=== PATIENT | female | born 1965 | race American Indian/Alaskan Native ===

== ENCOUNTER 2017-08-15 19:04 | Emergency (ER) | payer SELFPAY ==
[2017-08-15 19:34] VITALS: BP 109/73
--- NOTE | 2017-08-15 20:18 | XRay Report ---
FINAL REPORT PROCEDURE: XR SPINE LUMBOSACRAL 2-3V TECHNIQUE: Lumbar spine radiographs, including AP, lateral, and lumbosacral spot views. CPT 63995 HISTORY: Lower Back Pain COMPARISON: No prior studies are available for comparison. FINDINGS: Alignment: There is mild degree spondylolisthesis at L4-5 measuring 8 millimeters resulting in mild degree spinal canal stenosis. Vertebral body heights/Disk spaces: Mild narrowing of the intervertebral disc spaces noted at L5-S1.. Fracture(s): None. Facets: Bilateral facet arthropathy is noted from L3-4 to L5-S1. Bone mineralization: Normal. IMPRESSION: Spondylolisthesis at L4-5 with spinal canal stenosis Degenerative disc disease at L5-S1.
--- NOTE | 2017-08-15 20:21 | XRay Report ---
FINAL REPORT PROCEDURE: XR SHOULDER 2+V RT TECHNIQUE: Right shoulder radiographs including AP views in internal and external rotation and abduction. CPT 16392 HISTORY: Right shoulder pain COMPARISON: No prior studies are available for comparison. FINDINGS: Fracture (s) and/or Dislocation(s): None . Joint space(s): Normal. Soft tissues: Normal . Bone mineralization: Unremarkable. Foreign bodies: None . IMPRESSION: No acute abnormality
--- NOTE | 2017-08-15 20:22 | XRay Report ---
FINAL REPORT PROCEDURE: XR RIBS UNI W PA CHEST 3+V RT TECHNIQUE: RIGHT rib radiographs, 3 views of the ribs, including PA chest. HISTORY: Right rib pain COMPARISON: No prior studies are available for comparison. FINDINGS: Heart: Normal. Mediastinum/Vessels: Normal. Lungs: Normal. Pleural space: Normal. Pneumothorax: None. Bony thorax/ribs: No significant abnormality. IMPRESSION: Normal Examination.
== END 2017-08-15 20:30 | disposition left against medical advice (07) ==
LOC: ED 19:04
DX: R07.81 Pleurodynia (principal); M54.5 Low back pain; M25.511 Pain in right shoulder; Z53.21 Procedure and treatment not carried out due to patient leaving prior to being seen by health care provider
CPT/HCPCS: 72100

== ENCOUNTER 2017-08-29 06:45 | Emergency (ER) | payer MEDICARE, MEDICAID ==
[2017-08-29 07:24] VITALS: BP 124/87
== END 2017-08-29 07:41 | disposition left against medical advice (07) ==
LOC: ED 06:45
DX: M54.9 Dorsalgia, unspecified (principal); W10.9XXA Fall (on) (from) unspecified stairs and steps, initial encounter; Y93.89 Activity, other specified; Y99.8 Other external cause status; Y92.89 Other specified places as the place of occurrence of the external cause; Z53.21 Procedure and treatment not carried out due to patient leaving prior to being seen by health care provider

== ENCOUNTER 2017-12-03 08:15 | Outpatient (CLI) | payer MEDICARE, MEDICAID ==
--- NOTE | 2017-12-03 14:01 | Mammography Report ---
BILATERAL DIGITAL SCREENING MAMMOGRAM with CAD : 12/03/17 08:15:00 CLINICAL: Routine screening. COMPARISON:None available. FINDINGS: The breasts are heterogeneously dense, which may obscure small masses.Bilateral benign calcifications, some which are vascular. No mass, architectural distortion or suspicious calcifications. IMPRESSION: No mammographic evidence of malignancy. BI-RADS CATEGORY: 2 -- Benign RECOMMENDATION: Routine mammographic screening in one year. COMMENT: Patient follow-up letters are generated by our [employer] application.
== END 2017-12-03 08:16 | disposition home or self-care (01) ==
LOC: MAMMO 08:15
PROVIDERS: ATTEND Nurse Practitioner Family
DX: Z12.31 Encounter for screening mammogram for malignant neoplasm of breast (principal)
CPT/HCPCS: 77067

== ENCOUNTER 2018-10-02 07:46 | Emergency (ER) | payer MEDICARE ==
[2018-10-02] MEDS ORDERED: ZOFRAN ODT PO ONE (08:33)
[2018-10-02] MEDS ORDERED: NORCO 10/325 PO ONE (08:33)
--- NOTE | 2018-10-02 08:50 | Emergency Department Report ---
ED General Adult HPI - General Chief complaint: Fall Stated complaint: FALL/NECK PAIN Time Seen by Provider: 10/02/18 08:12 Source: patient, EMS Mode of arrival: Stretcher Limitations: No Limitations - History of Present Illness Initial comments: The patient presents to the emergency department with a chief complaint of right shoulder and neck pain. Patient states she was walking down the steps in front of her symptom is the way the bottom of the steps and slipped on the tile floor and fell onto her shoulder which in turn stretched her neck. Patient denies loss of consciousness or hitting her head. -: Sudden Location: neck, upper extremity Radiation: non-radiation Severity scale (0 -10): 8 Quality: aching Consistency: constant Improves with: rest Worsens with: movement Associated Symptoms: denies other symptoms Treatments Prior to Arrival: none - Related Data Home Medications Medication Instructions Recorded Confirmed Last Taken Depakote 1,500 mg PO HS 08/15/17 08/15/17 Unknown Previous Rx's Medication Instructions Recorded Last Taken Type Acetaminophen/Codeine [Tylenol 1 tab PO Q6H PRN #15 tab 10/02/18 Unknown Rx /Codeine # 3 tab] Ondansetron [Zofran Odt] 4 mg PO Q4HR PRN #20 tab.rapdis 10/02/18 Unknown Rx Allergies Allergy/AdvReac Type Severity Reaction Status Date / Time NSAIDS (Non-Steroidal AdvReac Unknown Verified 08/29/17 07:24 Anti-Inflamma ED Review of Systems ROS: Stated complaint: FALL/NECK PAIN Other details as noted in HPI Comment: All other systems reviewed and negative Constitutional: denies: chills, fever Eyes: denies: eye pain, eye discharge, vision change ENT: denies: ear pain, throat pain Respiratory: denies: cough, shortness of breath, wheezing Cardiovascular: denies: chest pain, palpitations Endocrine: no symptoms reported Gastrointestinal: denies: abdominal pain, nausea, diarrhea Genitourinary: denies: urgency, dysuria, discharge Musculoskeletal: denies: back pain, joint swelling, arthralgia Skin: denies: rash, lesions Neurological: denies: headache, weakness, paresthesias Psychiatric: denies: anxiety, depression Hematological/Lymphatic: denies: easy bleeding, easy bruising ED Past Medical Hx - Past Medical History Hx Psychiatric Treatment: Yes (Bipolar) - Surgical History Additional Surgical History: Bariactric Surgery 2015 - Social History Smoking Status: Current Every Day Smoker - Medications Home Medications: Home Medications Medication Instructions Recorded Confirmed Last Taken Type Depakote 1,500 mg PO HS 08/15/17 08/15/17 Unknown History Acetaminophen/Codeine [Tylenol 1 tab PO Q6H PRN #15 tab 10/02/18 Unknown Rx /Codeine # 3 tab] Ondansetron [Zofran Odt] 4 mg PO Q4HR PRN #20 tab.rapdis 10/02/18 Unknown Rx ED Physical Exam - General Limitations: No Limitations General appearance: alert, in no apparent distress - Head Head exam: Present: atraumatic, normocephalic - Eye Eye exam: Present: normal appearance, PERRL, EOMI - ENT ENT exam: Present: mucous membranes moist - Neck Neck exam: Present: other (paracervical ttp no midline ttp) - Respiratory Respiratory exam: Present: normal lung sounds bilaterally. Absent: respiratory distress - Cardiovascular Cardiovascular Exam: Present: regular rate, normal rhythm. Absent: systolic murmur, diastolic murmur, rubs, gallop - GI/Abdominal GI/Abdominal exam: Present: soft, normal bowel sounds. Absent: distended, tenderness - Extremities Exam Extremities exam: Present: other (right shoulder is tender to palpation at the acromioclavicular junction with limited range of motion secondary to pain) - Back Exam Back exam: Present: normal inspection - Neurological Exam Neurological exam: Present: alert, oriented X3, CN II-XII intact. Absent: motor sensory deficit - Psychiatric Psychiatric exam: Present: normal affect, normal mood - Skin Skin exam: Present: warm, dry, intact, normal color. Absent: rash ED Course Vital Signs 10/02/18 10/02/18 10/02/18 07:58 08:14 08:16 Temperature 98.6 F Pulse Rate 92 H 66 Respiratory 16 18 16 Rate Blood Pressure 160/70 131/95 [Left] O2 Sat by Pulse 98 97 97 Oximetry ED Medical Decision Making - Radiology Data Radiology results: report reviewed - Medical Decision Making Discussed results with patient Critical care attestation.: If time is entered above; I have spent that time in minutes in the direct care of this critically ill patient, excluding procedure time. ED Disposition Clinical Impression: Right shoulder strain, Cervical muscle strain, Cervical arthritis Disposition: DC-01 TO HOME OR SELFCARE Is pt being admited?: No Does the pt Need Aspirin: No Condition: Stable Instructions: Muscle Strain (ED), Cervical Spine Strain (ED), Shoulder Sprain (ED) Additional Instructions: return if worse Referrals: PRIMARY CARE,MD [Primary Care Provider] - 3-5 Days [facility] [Provider Group] - 3-5 Days [facility] [Provider Group] - 3-5 Days Time of Disposition: 09:36
--- NOTE | 2018-10-02 09:23 | XRay Report ---
CERVICAL SPINE, 4 VIEWS INDICATION: Neck pain after fall on stairs. COMPARISON: None. IMPRESSION: Normal alignment. Mild degenerative disc disease is identified at C3-4, C4-5 and C5-6. The remaining levels and facet joints are unremarkable. No acute osseous or soft tissue abnormality. Signer Name: Remi Stroud Jr, MD Signed: 10/02/2018 9:19 AM Workstation Name: [id number]
--- NOTE | 2018-10-02 09:25 | XRay Report ---
RIGHT SHOULDER, 3 VIEWS INDICATION: Right shoulder pain after fall. COMPARISON: 08/15/2017 IMPRESSION: No acute osseous or soft tissue abnormality. No significant DJD. No significant pope e since the previous exam. Signer Name: Remi Stroud Jr, MD Signed: 10/02/2018 9:21 AM Workstation Name: [id number]
[2018-10-02 09:49] VITALS: BP 140/99
== END 2018-10-02 09:51 | disposition home or self-care (01) ==
LOC: ED 07:46
DX: S46.911A Strain of unspecified muscle, fascia and tendon at shoulder and upper arm level, right arm, initial encounter (principal); S16.1XXA Strain of muscle, fascia and tendon at neck level, initial encounter; F31.9 Bipolar disorder, unspecified; F17.200 Nicotine dependence, unspecified, uncomplicated; Z79.899 Other long term (current) drug therapy; Z98.84 Bariatric surgery status; Z88.7 Allergy status to serum and vaccine; W01.198A Fall on same level from slipping, tripping and stumbling with subsequent striking against other object, initial encounter; Y93.89 Activity, other specified; Y92.89 Other specified places as the place of occurrence of the external cause; Y99.8 Other external cause status
CPT/HCPCS: 72040; 99283; Q0162

== ENCOUNTER 2018-11-16 13:05 | Emergency (ER) | payer MEDICARE ==
[2018-11-16 13:24] VITALS: BP 130/97
--- NOTE | 2018-11-16 13:33 | Event Note ---
ED Screening Note Date of service: 11/16/18 Time: 13:29 ED Screening Note: Seen here last mary night and injured left . Came and had xray and was told she had sprained knee and brace placed. She called [facility] and was told that he does not take well care. She finally found [facility] on 11/25/2018 at 10 pm at [facility]. She was given tylenol 3 and another pill with crutches Still with brace to knee and using crutches. Pain 08/21 This initial assessment/diagnostic orders/clinical plan/treatment(s) is/are subject to change based on patients health status, clinical progression and re- assessment by fellow clinical providers in the ED. Further treatment and workup at subsequent clinical providers discretion. Patient/guardian urged not to elope from the ED as their condition may be serious if not clinically assessed and managed. Initial orders include: TBS by FT provider
--- NOTE | 2018-11-16 14:56 | Emergency Department Report ---
ED Lower Extremity HPI - General Chief Complaint: Extremity Injury, Lower Stated Complaint: LFT KNEE PAIN Time Seen by Provider: 11/16/18 13:24 Source: patient Mode of arrival: Ambulatory Limitations: No Limitations - History of Present Illness Initial Comments: Recent dx knee sprain not to see ortho until next week and needs more pain meds Complaint: knee injury -: Sudden, week(s) (1) Injury: Knee: Left Type of Injury: unknown Place: home Improves With: rest Worsens With: movement - Related Data Home Medications Medication Instructions Recorded Confirmed Last Taken Depakote 1,500 mg PO HS 08/15/17 08/15/17 Unknown Previous Rx's Medication Instructions Recorded Last Taken Type Ondansetron [Zofran Odt] 4 mg PO Q4HR PRN #20 tab.rapdis 10/02/18 Unknown Rx Acetaminophen/Codeine [Tylenol 1 tab PO Q6H PRN #12 tab 11/16/18 Unknown Rx /Codeine # 3 tab] Allergies Allergy/AdvReac Type Severity Reaction Status Date / Time NSAIDS (Non-Steroidal AdvReac Unknown Verified 08/29/17 07:24 Anti-Inflamma ED Review of Systems ROS: Stated complaint: LFT KNEE PAIN Other details as noted in HPI Comment: All other systems reviewed and negative ED Past Medical Hx - Past Medical History Hx Psychiatric Treatment: Yes (Bipolar) - Surgical History Past Surgical History?: No Additional Surgical History: Bariactric Surgery 2014 - Social History Smoking Status: Current Every Day Smoker Substance Use Type: Alcohol - Medications Home Medications: Home Medications Medication Instructions Recorded Confirmed Last Taken Type Depakote 1,500 mg PO HS 08/15/17 08/15/17 Unknown History Ondansetron [Zofran Odt] 4 mg PO Q4HR PRN #20 tab.rapdis 10/02/18 Unknown Rx Acetaminophen/Codeine [Tylenol 1 tab PO Q6H PRN #12 tab 11/16/18 Unknown Rx /Codeine # 3 tab] ED Physical Exam - General Limitations: No Limitations General appearance: alert, in no apparent distress - Head Head exam: Present: atraumatic, normocephalic - Eye Eye exam: Present: normal appearance, EOMI - Neck Neck exam: Present: normal inspection, full ROM - Extremities Exam Extremities exam: Present: other (immobilizer to L knee, mild swelling to knee, no calf pain or edema, normal pulses distally ) - Neurological Exam Neurological exam: Present: alert, oriented X3 - Psychiatric Psychiatric exam: Present: normal affect, normal mood - Skin Skin exam: Present: warm, dry, normal color ED Course Vital Signs 11/16/18 13:20 Temperature 98.1 F Pulse Rate 88 Respiratory 18 Rate Blood Pressure 130/97 [Left] O2 Sat by Pulse 99 Oximetry ED Lower Extremity MDM - Medical Decision Making will give few pain pills until f/u - Differential Diagnosis sprain, med refill Critical care attestation.: If time is entered above; I have spent that time in minutes in the direct care of this critically ill patient, excluding procedure time. ED Disposition Clinical Impression: Left knee sprain Qualifiers: Encounter type: subsequent encounter Involved ligament of knee: unspecified ligament Qualified Code(s): S83.92XD - Sprain of unspecified site of left knee, subsequent encounter Disposition: DC-01 TO HOME OR SELFCARE Is pt being admited?: No Condition: Good Instructions: Knee Sprain (ED) Additional Instructions: Keep your orthopedic follow up. Prescriptions: Acetaminophen/Codeine [Tylenol /Codeine # 3 tab] 1 tab PO Q6H PRN #12 tab PRN Reason: pain Time of Disposition: 14:56
== END 2018-11-16 15:41 | disposition home or self-care (01) ==
LOC: ED 13:05
DX: S83.92XD Sprain of unspecified site of left knee, subsequent encounter (principal); F31.9 Bipolar disorder, unspecified; F17.200 Nicotine dependence, unspecified, uncomplicated; X58.XXXD Exposure to other specified factors, subsequent encounter
CPT/HCPCS: 99281

== ENCOUNTER 2018-12-06 08:02 | Emergency (ER) | payer MEDICARE ==
[2018-12-06 08:09] VITALS: BP 115/76
[2018-12-06] MEDS ORDERED: DECADRON IM ONE (08:21)
--- NOTE | 2018-12-06 08:21 | Emergency Department Report ---
ED Extremity Problem HPI - General Chief complaint: Extremity Injury, Lower Stated complaint: LFT KNEE SPRAINED/RT LEG PAIN Time Seen by Provider: 12/06/18 08:14 Source: patient Mode of arrival: Ambulatory Limitations: No Limitations - History of Present Illness Initial comments: Patient is a 53-year-old [place] female in no snake and past mental history states that approximately 3 weeks ago she tripped and sprained her left knee. Left knee is improving however over the last week she is developed some right lower back pain is radiating into the right buttock and down through the right lower extremity. The patient denies any bowel or bladder dysfunction. She denies any new direct trauma. Patient is having difficulty walking secondary to pain. Pain is 8 out of 10 in severity is just uncomfortable feeling. Patient states she cannot sit up straight because of the pain. Associated Symptoms: denies: chest pain, shortness of breath, fever, myalgias, arthralgias - Related Data Home Medications Medication Instructions Recorded Confirmed Last Taken Depakote 1,500 mg PO HS 08/15/17 08/15/17 Unknown Previous Rx's Medication Instructions Recorded Last Taken Type Ondansetron [Zofran Odt] 4 mg PO Q4HR PRN #20 tab.rapdis 10/02/18 Unknown Rx Acetaminophen/Codeine [Tylenol 1 tab PO Q6H PRN #12 tab 11/16/18 Unknown Rx /Codeine # 3 tab] methOCARBAMOL [Robaxin TAB] 500 mg PO Q6H PRN #14 tablet 12/06/18 Unknown Rx traMADol [Ultram] 50 mg PO Q6HR PRN #12 tablet 12/06/18 Unknown Rx Allergies Allergy/AdvReac Type Severity Reaction Status Date / Time NSAIDS (Non-Steroidal AdvReac Unknown Verified 08/29/17 07:24 Anti-Inflamma ED Review of Systems ROS: Stated complaint: LFT KNEE SPRAINED/RT LEG PAIN Other details as noted in HPI Comment: All other systems reviewed and negative ED Past Medical Hx - Past Medical History Previous Medical History?: Yes Hx Psychiatric Treatment: Yes (Bipolar) - Surgical History Past Surgical History?: Yes Additional Surgical History: Bariactric Surgery 2014 - Social History Smoking Status: Current Every Day Smoker Substance Use Type: None - Medications Home Medications: Home Medications Medication Instructions Recorded Confirmed Last Taken Type Depakote 1,500 mg PO HS 08/15/17 08/15/17 Unknown History Ondansetron [Zofran Odt] 4 mg PO Q4HR PRN #20 tab.rapdis 10/02/18 Unknown Rx Acetaminophen/Codeine [Tylenol 1 tab PO Q6H PRN #12 tab 11/16/18 Unknown Rx /Codeine # 3 tab] methOCARBAMOL [Robaxin TAB] 500 mg PO Q6H PRN #14 tablet 12/06/18 Unknown Rx traMADol [Ultram] 50 mg PO Q6HR PRN #12 tablet 12/06/18 Unknown Rx ED Physical Exam - General Limitations: No Limitations General appearance: alert, in no apparent distress - Head Head exam: Present: atraumatic, normocephalic - Eye Eye exam: Present: normal appearance, PERRL, EOMI - ENT ENT exam: Present: mucous membranes moist - Neck Neck exam: Present: normal inspection - Respiratory Respiratory exam: Present: normal lung sounds bilaterally. Absent: respiratory distress, wheezes, rales, rhonchi - Cardiovascular Cardiovascular Exam: Present: regular rate, normal rhythm, normal heart sounds - GI/Abdominal GI/Abdominal exam: Present: soft, normal bowel sounds. Absent: distended - Extremities Exam Extremities exam: Present: normal inspection - Back Exam Back exam: Present: normal inspection, paraspinal tenderness (right lumbar. pain with palpation of buttock) - Neurological Exam Neurological exam: Present: alert, oriented X3 - Psychiatric Psychiatric exam: Present: normal affect, normal mood - Skin Skin exam: Present: warm, dry, intact, normal color. Absent: rash ED Course Vital Signs 12/06/18 08:06 Temperature 98.6 F Pulse Rate 92 H Respiratory 18 Rate Blood Pressure 115/76 O2 Sat by Pulse 98 Oximetry ED Medical Decision Making - Medical Decision Making Patient's pain is consistent with acute lumbar radiculopathy. Patient like was favoring her left knee has developed issue on her right lower back. Patient be referred to orthopedic surgery the patient be started on steroid therapy and pain management. Critical care attestation.: If time is entered above; I have spent that time in minutes in the direct care of this critically ill patient, excluding procedure time. ED Disposition Clinical Impression: Lumbar radiculopathy, acute Disposition: DC-01 TO HOME OR SELFCARE Is pt being admited?: No Does the pt Need Aspirin: No Condition: Stable Instructions: Lumbar Radiculopathy (ED) Referrals: SKYE NUÑEZ MD [Staff Physician] - 3-5 Days Time of Disposition: 08:21
== END 2018-12-06 09:14 | disposition home or self-care (01) ==
LOC: ED 08:02
DX: M54.16 Radiculopathy, lumbar region (principal); M25.562 Pain in left knee; F17.200 Nicotine dependence, unspecified, uncomplicated; F31.9 Bipolar disorder, unspecified; Z88.7 Allergy status to serum and vaccine; Z79.899 Other long term (current) drug therapy
CPT/HCPCS: 96372; 99282; J1100

== ENCOUNTER 2019-04-01 08:03 | Outpatient (CLI) | payer MEDICARE ==
--- NOTE | 2019-04-01 15:17 | Mammography Report ---
DIGITAL SCREENING MAMMOGRAM WITH CAD, 04/01/2019 INDICATION: Routine screening mammography. TECHNIQUE: Digital bilateral 2D mammography was obtained in the craniocaudal and mediolateral obliq ue projections. This examination was interpreted with the benefit of Computer-Aided Detection analysi s. COMPARISON: 12/03/2017 FINDINGS: Breast Density: The breasts are heterogeneously dense, which may obscure small masses. Left asymmetries on both views require additional imaging. No architectural distortion or suspicious calcifications. There is no evidence of dominant mass, suspicious calcifications or architectural dis tortion in the right breast. IMPRESSION: Left asymmetries requiring additional imaging. Recommend recall for left lateral, repeat MLO and spot compression MLO and CC views and left breast ultrasound if needed. Follow up recommendation: Special View: Spot Category 0: Incomplete. Needs additional imaging evaluation and/or prior mammograms for comparison. A "normal" or negative report should not discourage follow up or biopsy of a clinically significant f inding. A written summary of these findings will be mailed to the patient. The patient will be entered into a mammography reporting system which will generate a reminder letter for the patient's next appointmen t at the appropriate interval. The [employer] recommends yearly mammograms starting at age 40 and continuing as l charlie as a woman is in good health. Breast MRI is recommended for women with an approximate 20-25% or greater lifetime risk of breast cancer, including women with a strong family history of breast or ova keshawn cancer or who have been treated for Hodgkin's disease. Signer Name: Harrison Matthews MD Signed: 04/01/2019 3:12 PM Workstation Name: [id number]
== END 2019-04-01 08:04 | disposition home or self-care (01) ==
LOC: MAMMO 08:03
PROVIDERS: ATTEND Internal Medicine
DX: Z12.31 Encounter for screening mammogram for malignant neoplasm of breast (principal)
CPT/HCPCS: 77067

== ENCOUNTER 2019-04-15 21:13 | Emergency (ER) | payer MEDICARE ==
--- NOTE | 2019-04-15 21:49 | Emergency Department Report ---
Blank Doc - Documentation Documentation: 54-year-old female that presents with chest pain, SOB and cough. This initial assessment/diagnostic orders/clinical plan/treatment(s) is/are subject to change based on patient's health status, clinical progression and re- assessment by fellow clinical providers in the ED. Further treatment and workup at subsequent clinical providers discretion. Patient/guardians urged not to elope from the ED as their condition may be serious if not clinically assessed and managed. Initial orders include: 1- Patient sent to [facility] for further evaluation and treatment 2- cardiac work-up
--- NOTE | 2019-04-15 22:39 | XRay Report ---
CHEST 2 VIEWS INDICATION / CLINICAL INFORMATION: Chest Pain. COMPARISON: None available. FINDINGS: SUPPORT DEVICES: None. HEART / MEDIASTINUM: No significant abnormality. LUNGS / PLEURA: There is mild airspace opacity in the left lung base which could represent atelectasi s or pneumonia. The remainder the lungs are clear. .No pneumothorax. ADDITIONAL FINDINGS: No significant additional findings. IMPRESSION: 1. There is mild airspace opacity in the left base which could represent atelectasis or pneumonia. Signer Name: Luis A Pereira MD Signed: 04/15/2019 10:35 PM Workstation Name: [id number]
[2019-04-15 23:08] LABS: Hematocrit 34.6 % (30.3-42.9); Hemoglobin 11.8 gm/dl (10.1-14.3); Mean Corpuscular HGB Conc 34 % (30-34); Mean Corpuscular Volume 99 fl (79-97); Platelet Count 442 K/mm3 (140-440); Red Blood Count 3.49 M/mm3 (3.65-5.03); Red Cell Distribution Width 12.7 % (13.2-15.2)
[2019-04-15 23:28] LABS: INR 0.89 (0.87-1.13)
[2019-04-15 23:29] LABS: Partial Thromboplastin Time 32.8 Sec. (24.2-36.6)
[2019-04-15 23:32] LABS: Alanine Aminotransferase 7 units/L (7-56); Albumin 3.3 g/dL (3.9-5); BUN/Creatinine Ratio 15; Blood Urea Nitrogen 6 mg/dL (7-17); Calcium 8.6 mg/dL (8.4-10.2); Hemolysis Index 2
--- NOTE | 2019-04-15 23:38 | Emergency Department Report ---
ED General Adult HPI - General Chief complaint: Chest Pain Stated complaint: CHEST/BACK PAIN Time Seen by Provider: 04/15/19 21:48 Source: patient, EMS Mode of arrival: Wheelchair Limitations: No Limitations - History of Present Illness Initial comments: Patient is a 54-year-old female that presents emergency room with complaints of chest pain, back pain and cough. Patient states her cough is been going on for a week. Patient states that her chest pain and back pain have been going on for 1 day. Patient complains of bilateral chest pain. Patient states the chest pain is better with rest and worse with coughing and movement. Patient states the chest pain is a 9 out of 10. Patient states she is also having upper back pain. Patient states it is in both sides of her back. Patient states the chest pain is not radiating and they are separate. Patient states that the back pain is a 9 out of 10. Patient states the back pain is better with rest and worse with coughing and movement. Patient states her chest and back pain also worse with palpation. Patient also complains of shortness of breath with coughing. Patient denies past medical history except for bipolar disorder. Patient denies nausea vomiting. Patient denies fever and chills. -: Sudden Location: chest, back Radiation: non-radiation Severity scale (0 -10): 9 Consistency: constant Improves with: rest Worsens with: movement Associated Symptoms: chest pain, cough, shortness of breath. denies: confusion, diaphoresis, fever/chills, headaches, loss of appetite, malaise, n ausea/vomiting, rash, seizure, syncope, weakness Treatments Prior to Arrival: none - Related Data Previous Rx's Medication Instructions Recorded Last Taken Type Ondansetron [Zofran Odt] 4 mg PO Q4HR PRN #20 tab.rapdis 10/02/18 Unknown Rx Acetaminophen/Codeine [Tylenol 1 tab PO Q6H PRN #12 tab 11/16/18 Unknown Rx /Codeine # 3 tab] methOCARBAMOL [Robaxin TAB] 500 mg PO Q6H PRN #14 tablet 12/06/18 Unknown Rx traMADoL [Ultram] 50 mg PO Q6HR PRN #12 tablet 12/06/18 Unknown Rx Buspirone HCl [busPIRone] 20 mg PO DAILY 30 Days #30 03/04/20 Unknown Rx DOXYCYCLINE Hyclate [Vibramycin 100 mg PO Q12HR 10 Days #20 capsule 04/16/19 Unknown Rx CAP] Depakote 1,500 mg PO HS 30 Days #30 04/16/19 Unknown Rx guaiFENesin/CODEINE [Robitussin AC] 5 ml PO Q4HR PRN #100 ml 04/16/19 Unknown Rx methylPREDNISolone [Medrol 4MG 4 mg PO DAILY 6 Days #1 tab.ds.pk 04/16/19 Unknown Rx DOSEPAK (21 tabs)] Allergies Allergy/AdvReac Type Severity Reaction Status Date / Time NSAIDS (Non-Steroidal AdvReac Unknown Verified 08/29/17 07:24 Anti-Inflamma ED Review of Systems ROS: Stated complaint: CHEST/BACK PAIN Other details as noted in HPI Constitutional: denies: chills, fever Eyes: denies: eye pain, eye discharge, vision change ENT: denies: ear pain, throat pain Respiratory: cough, shortness of breath, SOB with exertion. denies: SOB at rest, wheezing Cardiovascular: chest pain. denies: palpitations Endocrine: no symptoms reported Gastrointestinal: denies: abdominal pain, nausea, diarrhea Genitourinary: denies: urgency, dysuria, discharge Musculoskeletal: back pain. denies: joint swelling, arthralgia Skin: denies: rash, lesions Neurological: denies: headache, weakness, paresthesias Psychiatric: denies: anxiety, depression Hematological/Lymphatic: denies: easy bleeding, easy bruising ED Past Medical Hx - Past Medical History Previous Medical History?: Yes Hx Psychiatric Treatment: Yes (Bipolar) - Surgical History Past Surgical History?: Yes Additional Surgical History: Bariatric Surgery 2014 - Family History Family history: no significant - Social History Smoking Status: Current Every Day Smoker Substance Use Type: None - Medications Home Medications: Home Medications Medication Instructions Recorded Confirmed Last Taken Type Ondansetron [Zofran Odt] 4 mg PO Q4HR PRN #20 tab.rapdis 10/02/18 04/16/19 Unknown Rx Acetaminophen/Codeine [Tylenol 1 tab PO Q6H PRN #12 tab 11/16/18 04/16/19 Unknown Rx /Codeine # 3 tab] methOCARBAMOL [Robaxin TAB] 500 mg PO Q6H PRN #14 tablet 12/06/18 04/16/19 Unknown Rx traMADoL [Ultram] 50 mg PO Q6HR PRN #12 tablet 12/06/18 04/16/19 Unknown Rx Buspirone HCl [busPIRone] 20 mg PO DAILY 30 Days #30 04/16/19 Unknown Rx DOXYCYCLINE Hyclate [Vibramycin 100 mg PO Q12HR 10 Days #20 capsule 04/16/19 Unknown Rx CAP] Depakote 1,500 mg PO HS 30 Days #30 04/16/19 Unknown Rx guaiFENesin/CODEINE [Robitussin AC] 5 ml PO Q4HR PRN #100 ml 04/16/19 Unknown Rx methylPREDNISolone [Medrol 4MG 4 mg PO DAILY 6 Days #1 tab.ds.pk 04/16/19 Unknown Rx DOSEPAK (21 tabs)] ED Physical Exam - General Limitations: No Limitations General appearance: alert, in no apparent distress - Head Head exam: Present: atraumatic, normocephalic - Eye Eye exam: Present: normal appearance - ENT ENT exam: Present: mucous membranes moist - Neck Neck exam: Present: normal inspection - Respiratory Respiratory exam: Present: normal lung sounds bilaterally, chest wall tenderness. Absent: respiratory distress, wheezes, rales, rhonchi, accessory muscle use - Cardiovascular Cardiovascular Exam: Present: regular rate, normal rhythm. Absent: systolic murmur, diastolic murmur, rubs, gallop - GI/Abdominal GI/Abdominal exam: Present: soft, normal bowel sounds. Absent: distended, tenderness, guarding - Rectal Rectal exam: Present: deferred - Extremities Exam Extremities exam: Present: normal inspection - Back Exam Back exam: Present: normal inspection - Neurological Exam Neurological exam: Present: alert, oriented X3 - Psychiatric Psychiatric exam: Present: normal affect, normal mood - Skin Skin exam: Present: warm, dry, intact, normal color. Absent: rash ED Course Vital Signs 04/15/19 04/16/19 21:17 00:02 Temperature 98.1 F 99.3 F Pulse Rate 107 H 101 H Respiratory 18 16 Rate Blood Pressure 92/62 Blood Pressure 106/78 [Right] O2 Sat by Pulse 96 100 Oximetry - Reevaluation(s) Reevaluation #1: I discussed all results and clinical findings with patient. I discussed plan of care with patient. Patient agrees with plan of care. Patient is stable for discharge. Patient will be discharged home. Patient given discharge instructions. Patient voiced understanding of discharge instructions. Patient states she is feeling better. Patient states that she essentially pain- free. Patient states she is ready to go. Patient states she needs a refill of her regular medications. 04/16/19 01:43 ED Medical Decision Making - Lab Data Result diagrams: 04/15/19 22:48 04/15/19 22:48 - EKG Data -: EKG Interpreted by Me EKG shows normal: sinus rhythm, axis, intervals, QRS complexes, ST-T waves Rate: tachycardia - Radiology Data Radiology results: report reviewed, image reviewed CHEST 2 VIEWS INDICATION / CLINICAL INFORMATION: Chest Pain. COMPARISON: None available. FINDINGS: SUPPORT DEVICES: None. HEART / MEDIASTINUM: No significant abnormality. LUNGS / PLEURA: There is mild airspace opacity in the left lung base which could represent atelectasis or pneumonia. The remainder the lungs are clear. .No pneumothorax. ADDITIONAL FINDINGS: No significant additional findings. IMPRESSION: 1. There is mild airspace opacity in the left base which could represent atelectasis or pneumonia. - Medical Decision Making Patient is a 54-year-old female that presents emergency room with complaints of chest pain, shortness of breath, cough. Patient's clinical findings are consistent with a left lower lobe pneumonia. Patient's labs are unremarkable. Patient is noted to have a sinus tachycardia on EKG. Patient given fluids, Solu-Medrol and antibiotics. Patient's curb score is 0. Patient's pneumonia severity index is class II and low risk. Patient stable to be treated as an outpatient. Patient does not require inpatient treatment. Patient responded well to treatment. Patient was pain-free prior to discharge. Patient stated her symptoms improved with treatment. Patient stable for discharge. Patient discharged home. Patient given antibiotics, Medrol Dosepak and Robitussin-AC. Patient given discharge instructions. Patient given medication instructions. Critical care attestation.: If time is entered above; I have spent that time in minutes in the direct care of this critically ill patient, excluding procedure time. ED Disposition Clinical Impression: Cough, Acute chest wall pain, Upper back pain, Strain of thoracic back region Pneumonia Qualifiers: Pneumonia type: due to unspecified organism Laterality: left Lung location: lower lobe of lung Qualified Code(s): J18.9 - Pneumonia, unspecified organism Chest pain Qualifiers: Chest pain type: unspecified Qualified Code(s): R07.9 - Chest pain, unspecified Disposition: TO HOME OR SELFCARE Is pt being admited?: No Does the pt Need Aspirin: No Condition: Stable Instructions: Chest Pain (ED), Bacterial Pneumonia (ED) Additional Instructions: Patient to follow-up with primary care in 2 to 3 days. Patient to rest. Patient to increase water. Patient to avoid strenuous exercise or heavy lifting until cleared by PCP. Patient to take Tylenol as needed for pain. Patient to take meds as directed. Patient to return to the ER if condition worsens, changes or new symptoms arise. Prescriptions: Buspirone HCl [busPIRone] 20 mg PO DAILY 30 Days #30 Depakote 1,500 mg PO HS 30 Days #30 methylPREDNISolone [Medrol 4MG DOSEPAK (21 tabs)] 4 mg PO DAILY 6 Days #1 tab.ds.pk guaiFENesin/CODEINE [Robitussin AC] 5 ml PO Q4HR PRN #100 ml PRN Reason: Cough DOXYCYCLINE Hyclate [Vibramycin CAP] 100 mg PO Q12HR 10 Days #20 capsule Referrals: PRIMARY CARE, [Primary Care Provider] - 3-5 Days Time of Disposition: 00:33
[2019-04-15] MEDS ORDERED: SODIUM CHLORIDE 0.9% 1000 ML 1,000 ML IV ONE (23:51)
[2019-04-15] MEDS ORDERED: methylPREDNISolone Sod Succinate 125 MG/2 ML INJ IV ONE (23:51)
[2019-04-16 00:04] VITALS: BP 106/78
[2019-04-16] MEDS ORDERED: CEFEPIME/NS 2 GM/100 ML 2 GM/100 ML BAG IV ONE (00:30)
[2019-04-16 00:39] LABS: Total Cells Counted 100
[2019-04-16 00:40] LABS: Anisocytosis 1+; Band Neutrophils # (Manual) 0.1 K/mm3; Eosinophils % (Manual) 0 % (0.0-4.3); Platelet Estimate Consistent w Auto
== END 2019-04-16 02:00 | disposition home or self-care (01) ==
LOC: ED 21:13
DX: S29.012A Strain of muscle and tendon of back wall of thorax, initial encounter (principal); J18.9 Pneumonia, unspecified organism; F31.9 Bipolar disorder, unspecified; F17.200 Nicotine dependence, unspecified, uncomplicated; Z98.890 Other specified postprocedural states; Z79.899 Other long term (current) drug therapy; Z88.6 Allergy status to analgesic agent; X58.XXXA Exposure to other specified factors, initial encounter; Y93.89 Activity, other specified; Y92.89 Other specified places as the place of occurrence of the external cause; Y99.8 Other external cause status
CPT/HCPCS: 36415; 71046; 80053; 84484; 85007; 85025; 85610; 85730; 93005; 93010; 96365; 96375; 99285; J0692; J2930; J7030

== ENCOUNTER 2019-05-02 07:34 | Outpatient (CLI) | payer MEDICARE ==
--- NOTE | 2019-05-02 09:03 | Mammography Report ---
LEFT DIGITAL DIAGNOSTIC MAMMOGRAM WITH CAD 05/02/2019 LEFT LIMITED BREAST ULTRASOUND INDICATION: R92.8 LT BREAST TECHNIQUE: Digital left mammographic imaging was performed. Spot compression views were obtained. Li mited ultrasound was performed. This examination was interpreted with the benefit of Computer-Aided D etection (CAD) analysis. COMPARISON: 04/01/2019 FINDINGS: Breast Density: The breasts are heterogeneously dense, which may obscure small masses. MAMMOGRAPHIC FINDINGS: Lateral and spot compression MLO and CC views were performed. An oval circumsc ribed asymmetry persists on spot compression views. ULTRASOUND FINDINGS: Targeted ultrasound evaluation was performed of the area of interest. Ultrasou nd the left breast demonstrated an oval anechoic thin-walled cyst at 6:00 2 cm from the nipple measur ing 6 x 4 x 5 mm. It correlates with the mammographic finding. IMPRESSION: A benign 6 mm left breast cyst at 6:00. Recommend routine mammographic screening. Follow up recommendation: Routine yearly BI-RADS Category 2: Benign. A "normal" or negative report should not discourage follow up or biopsy of a clinically significant f inding. A written summary of these findings will be mailed to the patient. The patient will be entered into a mammography reporting system which will generate a reminder letter for the patient's next appointmen t at the appropriate interval. According to the [employer], yearly mammograms are recommended starting at age 40 and continuing as long as a woman is in good health. Breast MRI is recommended for women with an tico roximately 20-25% or greater lifetime risk of breast cancer, including women with a strong family his tory of breast or ovarian cancer and women who have been treated for Hodgkin's disease. Signer Name: Harrison Matthews MD Signed: 05/02/2019 8:59 AM Workstation Name: [id number]
== END 2019-05-02 07:35 | disposition home or self-care (01) ==
LOC: MAMMO 07:34
PROVIDERS: ATTEND Internal Medicine
DX: N60.02 Solitary cyst of left breast (principal); R92.8 Other abnormal and inconclusive findings on diagnostic imaging of breast

== ENCOUNTER 2020-05-13 14:06 | Emergency (ER) | payer MEDICARE ==
--- NOTE | 2020-05-13 15:57 | Event Note ---
ED Screening Note ED Screening Note: pilonial cyst on exam This initial assessment/diagnostic orders/clinical plan/treatment(s) is/are subject to change based on patients health status, clinical progression and re- assessment by fellow clinical providers in the ED. Further treatment and workup at subsequent clinical providers discretion. Patient/guardian urged not to elope from the ED as their condition may be serious if not clinically assessed and managed. Initial orders include: labs I/D
[2020-05-13 16:23] LABS: Basophils % (Auto) 0.6 % (0.0-1.8); Eosinophils % (Auto) 0.7 % (0.0-4.3); Hematocrit 36.5 % (30.3-42.9); Hemoglobin 12.4 gm/dl (10.1-14.3); Lymphocytes # (Auto) 1.5 K/mm3 (1.2-5.4); Lymphocytes % (Auto) 28.5 % (13.4-35.0); Mean Corpuscular HGB Conc 34 % (30-34); Mean Corpuscular Volume 99 fl (79-97); Monocytes # (Auto) 0.8 K/mm3 (0.0-0.8); Monocytes % (Auto) 14.4 % (0.0-7.3); Platelet Count 330 K/mm3 (140-440); Red Blood Count 3.68 M/mm3 (3.65-5.03); Red Cell Distribution Width 14.8 % (13.2-15.2)
[2020-05-13] MEDS ORDERED: LIDOCAINE (1%) 10 MG/1 ML VIAL 20 ML MDV INFILTRATI ONE (16:24)
[2020-05-13] MEDS ORDERED: SODIUM CHLORIDE 0.9% IRR 500 ML BOTTLE IR ONE (16:24)
[2020-05-13] MEDS ORDERED: NEOMY 3.5 MG/BACIT 400 UNITS/POLY B 5000 UNITS/GM OINT PACKET TP ONE (16:24)
[2020-05-13 16:42] LABS: Alanine Aminotransferase 10 units/L (7-56); Albumin 3.2 g/dL (3.9-5); Blood Urea Nitrogen 8 mg/dL (7-17); Calcium 8.3 mg/dL (8.4-10.2); Hemolysis Index 6
[2020-05-13 16:51] LABS: BUN/Creatinine Ratio 16
[2020-05-13 17:20] LABS: INR 0.95 (0.87-1.13)
[2020-05-13] MEDS ORDERED: POTASSIUM CHLORIDE ER 20 MEQ TAB PO ONE (17:25)
[2020-05-13] MEDS ORDERED: SODIUM CHLORIDE 0.9% 1000 ML 1,000 ML IV ONE (17:25)
--- NOTE | 2020-05-13 17:31 | Emergency Department Report ---
- General Chief complaint: Wound/Laceration Stated complaint: SORE ON BOTTOM Time Seen by Provider: 05/13/20 16:43 Source: patient Mode of arrival: Wheelchair Limitations: No Limitations - History of Present Illness Initial comments: This is a 55-year-old female nontoxic, well nourished in appearance, no acute signs of distress presents to the ED with c/o of pain with slight ulcer to coccyx area x several days. Patient had a recent left knee replacement 3 months ago and since then stated has been laying on her bed. Patient otherwise denies any trauma or injuries. Denies any swelling in that area or redness. Patient denies any pus or drainage. Patient denies any fever, chills, nausea, vomiting, chest pain, shortness of breath, headache or stiff neck. Patient stated a llergies to NSAIDs and oxycodone. -: days(s) Location: buttocks Severity: mild Severity scale (0 -10): 8 Quality: aching Consistency: constant Improves with: none Worsens with: palpation Associated symptoms: denies other symptoms Treatments Prior to Arrival: none - Related Data Home Medications Medication Instructions Recorded Confirmed Last Taken Buspirone HCl [busPIRone] 15 mg PO BID 02/02/20 02/02/20 Unknown Depakote 250 mg PO BID 02/02/20 02/12/20 02/11/20 20:00 Lactose Fast Acting Relief 10 mg PO PRN PRN 02/02/20 02/02/20 Unknown Pediatric Multivitamin No.136 1 each PO DAILY 02/02/20 02/12/20 02/11/20 08:00 [Children Multivitamin] QUEtiapine [SEROquel] 100 mg PO QHS 02/02/20 02/12/20 02/11/20 20:00 amLODIPine [Norvasc] 5 mg PO DAILY 02/02/20 02/12/20 02/11/20 08:00 traZODone [Desyrel] 100 mg PO QHS 02/02/20 02/12/20 02/11/20 20:00 Previous Rx's Medication Instructions Recorded Last Taken Type Apixaban [Eliquis] 5 mg PO DAILY #30 tablet 02/12/20 Unknown Rx HYDROmorphone [Dilaudid] 2 mg PO Q6HR #30 tablet 02/12/20 Unknown Rx Clindamycin [Clindamycin CAP] 300 mg PO Q8H #21 cap 05/13/20 Unknown Rx Transparent Dressing [Transparent 1 each TP DAILY 30 Days #1 box 05/13/20 Unknown Rx Film Dressing] Allergies Allergy/AdvReac Type Severity Reaction Status Date / Time NSAIDS (Non-Steroidal AdvReac GI PROBLEMS Verified 02/02/20 16:51 Anti-Inflamma oxycodone [From Percocet] AdvReac NOT Verified 02/02/20 16:52 EFFECTIVE Abscess Boil HPI - HPI Chief Complaint: Wound/Laceration Stated Complaint: SORE ON BOTTOM Time Seen by Provider: 05/13/20 16:43 Home Medications: Home Medications Medication Instructions Recorded Confirmed Last Taken Buspirone HCl [busPIRone] 15 mg PO BID 02/02/20 02/02/20 Unknown Depakote 250 mg PO BID 02/02/20 02/12/20 02/11/20 20:00 Lactose Fast Acting Relief 10 mg PO PRN PRN 02/02/20 02/02/20 Unknown Pediatric Multivitamin No.136 1 each PO DAILY 02/02/20 02/12/20 02/11/20 08:00 [Children Multivitamin] QUEtiapine [SEROquel] 100 mg PO QHS 02/02/20 02/12/20 02/11/20 20:00 amLODIPine [Norvasc] 5 mg PO DAILY 02/02/20 02/12/20 02/11/20 08:00 traZODone [Desyrel] 100 mg PO QHS 02/02/20 02/12/20 02/11/20 20:00 Previous Rx's Medication Instructions Recorded Last Taken Type Apixaban [Eliquis] 5 mg PO DAILY #30 tablet 02/12/20 Unknown Rx HYDROmorphone [Dilaudid] 2 mg PO Q6HR #30 tablet 02/12/20 Unknown Rx Clindamycin [Clindamycin CAP] 300 mg PO Q8H #21 cap 05/13/20 Unknown Rx Transparent Dressing [Transparent 1 each TP DAILY 30 Days #1 box 05/13/20 Unknown Rx Film Dressing] Allergies/Adverse Reactions: Allergies Allergy/AdvReac Type Severity Reaction Status Date / Time NSAIDS (Non-Steroidal AdvReac GI PROBLEMS Verified 02/02/20 16:51 Anti-Inflamma oxycodone [From Percocet] AdvReac NOT Verified 02/02/20 16:52 EFFECTIVE ED Review of Systems ROS: Stated complaint: SORE ON BOTTOM Other details as noted in HPI Comment: All other systems reviewed and negative Constitutional: denies: chills, fever Eyes: denies: eye pain, eye discharge, vision change ENT: denies: ear pain, throat pain Respiratory: denies: cough, shortness of breath, wheezing Cardiovascular: denies: chest pain, palpitations Endocrine: no symptoms reported Gastrointestinal: denies: abdominal pain, nausea, diarrhea Genitourinary: denies: urgency, dysuria, discharge Musculoskeletal: denies: back pain, joint swelling, arthralgia Skin: denies: rash, lesions Neurological: denies: headache, weakness, paresthesias Psychiatric: denies: anxiety, depression Hematological/Lymphatic: denies: easy bleeding, easy bruising ED Past Medical Hx - Past Medical History Hx Hypertension: Yes Hx Diabetes: Yes Hx Liver Disease: Yes (Hep C-treated 2009) Hx Arthritis: Yes Hx Psychiatric Treatment: Yes (Bipolar) - Surgical History Past Surgical History?: Yes Additional Surgical History: Bariatric Surgery 2014 - Social History Smoking Status: Unknown if ever smoked Substance Use Type: None - Medications Home Medications: Home Medications Medication Instructions Recorded Confirmed Last Taken Type Buspirone HCl [busPIRone] 15 mg PO BID 02/02/20 02/02/20 Unknown History Depakote 250 mg PO BID 02/02/20 02/12/20 02/11/20 20:00 History Lactose Fast Acting Relief 10 mg PO PRN PRN 02/02/20 02/02/20 Unknown History Pediatric Multivitamin No.136 1 each PO DAILY 02/02/20 02/12/20 02/11/20 08:00 History [Children Multivitamin] QUEtiapine [SEROquel] 100 mg PO QHS 02/02/20 02/12/20 02/11/20 20:00 History amLODIPine [Norvasc] 5 mg PO DAILY 02/02/20 02/12/20 02/11/20 08:00 History traZODone [Desyrel] 100 mg PO QHS 02/02/20 02/12/20 02/11/20 20:00 History Apixaban [Eliquis] 5 mg PO DAILY #30 tablet 02/12/20 Unknown Rx HYDROmorphone [Dilaudid] 2 mg PO Q6HR #30 tablet 02/12/20 Unknown Rx Clindamycin [Clindamycin CAP] 300 mg PO Q8H #21 cap 05/13/20 Unknown Rx Transparent Dressing [Transparent 1 each TP DAILY 30 Days #1 box 05/13/20 Unknown Rx Film Dressing] ED Physical Exam - General Limitations: No Limitations General appearance: alert, in no apparent distress - Head Head exam: Present: atraumatic, normocephalic - Eye Eye exam: Present: normal appearance - Neck Neck exam: Present: normal inspection, full ROM - Respiratory Respiratory exam: Present: normal lung sounds bilaterally. Absent: respiratory distress, wheezes, rales, rhonchi, stridor, chest wall tenderness, accessory muscle use, decreased breath sounds, prolonged expiratory - Cardiovascular Cardiovascular Exam: Present: regular rate, normal rhythm, normal heart sounds. Absent: bradycardia, tachycardia, irregular rhythm, systolic murmur, diastolic murmur, rubs, gallop - GI/Abdominal GI/Abdominal exam: Present: soft, normal bowel sounds. Absent: distended, tenderness, guarding, rebound, rigid, diminished bowel sounds - Extremities Exam Extremities exam: Present: full ROM - Back Exam Back exam: Present: normal inspection, full ROM, other (stage I decubitus ulcer to coccyx area. No swelling or cellulitis noted. No abscess. No pus or drainage.). Absent: tenderness, CVA tenderness (R), CVA tenderness (L), muscle spasm, paraspinal tenderness, vertebral tenderness, rash noted - Neurological Exam Neurological exam: Present: alert, oriented X3 - Psychiatric Psychiatric exam: Present: normal affect, normal mood - Skin Skin exam: Present: warm, dry, intact, normal color. Absent: rash ED Course Vital Signs 05/13/20 14:51 Temperature 98.6 F Pulse Rate 87 Respiratory 18 Rate Blood Pressure 122/86 O2 Sat by Pulse 100 Oximetry - Reevaluation(s) Reevaluation #1: 05/13/20 17:32 Patient is speaking in full sentences with no signs of distress noted. - Consultations Consultation #1: 05/13/20 17:32 Patient has been consulted with Dr. Chavis about patient history, physical exam, and labs and patient can get 20 IV K+ and 40 PO K+ and discharged with follow-up and no repeat labs necessary. ED Medical Decision Making - Lab Data Result diagrams: 05/13/20 16:03 05/13/20 16:03 Lab Results 05/13/20 05/13/20 05/13/20 Range/Units 16:03 16:03 17:01 WBC 5.4 (4.5-11.0) K/mm3 RBC 3.68 (3.65-5.03) M/mm3 Hgb 12.4 (10.1-14.3) gm/dl Hct 36.5 (30.3-42.9) % MCV 99 H (79-97) fl MCH 34 H (28-32) pg MCHC 34 (30-34) % RDW 14.8 (13.2-15.2) % Plt Count 330 (140-440) K/mm3 Lymph % (Auto) 28.5 (13.4-35.0) % [place] % (Auto) 14.4 H (0.0-7.3) % Eos % (Auto) 0.7 (0.0-4.3) % Baso % (Auto) 0.6 (0.0-1.8) % Lymph # (Auto) 1.5 (1.2-5.4) K/mm3 [place] # (Auto) 0.8 (0.0-0.8) K/mm3 Eos # (Auto) 0.0 (0.0-0.4) K/mm3 Baso # (Auto) 0.0 (0.0-0.1) K/mm3 Seg Neutrophils % 55.8 (40.0-70.0) % Seg Neutrophils # 3.0 (1.8-7.7) K/mm3 PT 12.6 (12.2-14.9) Sec. INR 0.95 (0.87-1.13) APTT 30.0 (24.2-36.6) Sec. Sodium 136 L (137-145) mmol/L Potassium 2.8 L* (3.6-5.0) mmol/L Chloride 97.5 L (98-107) mmol/L Carbon Dioxide 30 (22-30) mmol/L Anion Gap 11 mmol/L BUN 8 (7-17) mg/dL Creatinine 0.5 L (0.6-1.2) mg/dL Estimated GFR > 60 ml/min BUN/Creatinine Ratio 16 % Glucose 111 H (65-100) mg/dL Calcium 8.3 L (8.4-10.2) mg/dL Magnesium (1.7-2.3) mg/dL Total Bilirubin 0.50 (0.1-1.2) mg/dL AST 29 (5-40) units/L ALT 10 (7-56) units/L Alkaline Phosphatase 95 (35-129) units/L Troponin T (0.00-0.029) ng/mL Total Protein 6.3 (6.3-8.2) g/dL Albumin 3.2 L (3.9-5) g/dL Albumin/Globulin Ratio 1.0 % 04//21 Range/Units 17:01 WBC (4.5-11.0) K/mm3 RBC (3.65-5.03) M/mm3 Hgb (10.1-14.3) gm/dl Hct (30.3-42.9) % MCV (79-97) fl MCH (28-32) pg MCHC (30-34) % RDW (13.2-15.2) % Plt Count (140-440) K/mm3 Lymph % (Auto) (13.4-35.0) % [place] % (Auto) (0.0-7.3) % Eos % (Auto) (0.0-4.3) % Baso % (Auto) (0.0-1.8) % Lymph # (Auto) (1.2-5.4) K/mm3 [place] # (Auto) (0.0-0.8) K/mm3 Eos # (Auto) (0.0-0.4) K/mm3 Baso # (Auto) (0.0-0.1) K/mm3 Seg Neutrophils % (40.0-70.0) % Seg Neutrophils # (1.8-7.7) K/mm3 PT (12.2-14.9) Sec. INR (0.87-1.13) APTT (24.2-36.6) Sec. Sodium (137-145) mmol/L Potassium (3.6-5.0) mmol/L Chloride (98-107) mmol/L Carbon Dioxide (22-30) mmol/L Anion Gap mmol/L BUN (7-17) mg/dL Creatinine (0.6-1.2) mg/dL Estimated GFR ml/min BUN/Creatinine Ratio % Glucose (65-100) mg/dL Calcium (8.4-10.2) mg/dL Magnesium 1.20 L (1.7-2.3) mg/dL Total Bilirubin (0.1-1.2) mg/dL AST (5-40) units/L ALT (7-56) units/L Alkaline Phosphatase (35-129) units/L Troponin T < 0.010 (0.00-0.029) ng/mL Total Protein (6.3-8.2) g/dL Albumin (3.9-5) g/dL Albumin/Globulin Ratio % - EKG Data 05/13/20 18:57 Normal sinus rhythm at [address] or T wave abnormalities. Reviewed and signed by MD. - Medical Decision Making This is a 55-year-old female that presents with decubitus ulcer stage I and hypokalemia. Patient is stable and was examined by me. Patient received potassium p.o. and IV. Patient be treated with clindamycin and transparent film placed to decubitus ulcer. There is no induration, fluctuance. No signs of abscess formation. Patient educated on decubitus ulcer and ways to prevent it. Patient was referred to Follow-up with a primary care doctor in 3-5 days or if symptoms worsen and continue return to emergency room as soon as possible. At time of discharge, the patient does not seem toxic or ill in appearance. No acute signs of distress noted. Patient agrees to discharge treatment plan of care. No further questions noted by the patient. Critical care attestation.: If time is entered above; I have spent that time in minutes in the direct care of this critically ill patient, excluding procedure time. ED Disposition Clinical Impression: Hypokalemia, Hypomagnesemia Decubitus ulcer, stage 1 Qualifiers: Pressure injury location: sacral region Qualified Code(s): L89.151 - Pressure ulcer of sacral region, stage 1 Disposition: TO HOME OR SELFCARE Is pt being admited?: No Does the pt Need Aspirin: No Condition: Stable Instructions: Hypomagnesemia, Hypokalemia, Preventing Pressure Injuries, Pressure Injury, Potassium Content of Foods Additional Instructions: Follow-up with a primary care doctor in 3-5 days or if symptoms worsen and continue return to emergency room as soon as possible. Prescriptions: Clindamycin [Clindamycin CAP] 300 mg PO Q8H #21 cap Transparent Dressing [Transparent Film Dressing] 1 each TP DAILY 30 Days #1 box Referrals: PRIMARY CARE, [Primary Care Provider] - 3-5 Days DOMENIC WHITE MD [Staff Physician] - 3-5 Days Time of Disposition: 18:57
[2020-05-13] MEDS ORDERED: POTASSIUM CHLORIDE 10 MEQ 10 MEQ/100 ML BAG IV ONE (17:36)
[2020-05-13] MEDS ORDERED: MAGNESIUM SULFATE 2 GM/50 ML BAG IV ONE (17:57)
[2020-05-13] MEDS ORDERED: POTASSIUM CHLORIDE 10 MEQ 10 MEQ/100 ML BAG IV SCH ×2 (18:00)
[2020-05-13] MEDS ORDERED: ACETAMINOPHEN 500 MG TAB PO ONE (20:56)
[2020-05-13 21:11] VITALS: BP 140/100
--- NOTE | 2020-05-14 14:43 | Electrocardiograph Report ---
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
== END 2020-05-13 21:20 | disposition home or self-care (01) ==
LOC: ED 14:06
DX: L89.151 Pressure ulcer of sacral region, stage 1 (principal); E87.6 Hypokalemia; E83.42 Hypomagnesemia; I10 Essential (primary) hypertension; E11.9 Type 2 diabetes mellitus without complications; M19.91 Primary osteoarthritis, unspecified site; F31.9 Bipolar disorder, unspecified; Z98.890 Other specified postprocedural states; Z79.2 Long term (current) use of antibiotics; Z79.899 Other long term (current) drug therapy; Z88.8 Allergy status to other drugs, medicaments and biological substances
CPT/HCPCS: 36415; 80053; 83735; 84484; 85025; 85610; 85730; 93005; 96365; 96367; 99284; J3475; J3480; J7030

== ENCOUNTER 2021-07-08 15:33 | Emergency (ER) | payer MEDICARE | END 2021-07-08 17:35 | disposition left against medical advice (07) | LOC: ED 15:33 | DX: L98.499 Non-pressure chronic ulcer of skin of other sites with unspecified severity (principal); Z53.21 Procedure and treatment not carried out due to patient leaving prior to being seen by health care provider ==

== ENCOUNTER 2021-07-09 02:55 | Emergency (ER) | payer MEDICARE ==
[2021-07-09 03:02] VITALS: BP 155/102
[2021-07-09 03:26] LABS: Hematocrit 40.6 % (30.3-42.9); Hemoglobin 13.9 gm/dl (10.1-14.3); Mean Corpuscular HGB Conc 34 % (30-34); Mean Corpuscular Volume 98 fl (79-97); Platelet Count 332 K/mm3 (140-440); Red Blood Count 4.13 M/mm3 (3.65-5.03); Red Cell Distribution Width 15.4 % (13.2-15.2)
[2021-07-09 03:44] LABS: Alanine Aminotransferase 11 units/L (7-56); Albumin 4.1 g/dL (3.9-5); Blood Urea Nitrogen 4 mg/dL (7-17); Calcium 9.6 mg/dL (8.4-10.2); Hemolysis Index 8
[2021-07-09 03:46] LABS: BUN/Creatinine Ratio 8
[2021-07-09 04:13] LABS: Anisocytosis 1+; Basophils % (Manual) 0 % (0.0-1.8); Total Cells Counted 100
[2021-07-09 04:14] LABS: Platelet Estimate Consistent w Auto
[2021-07-09 08:07] LABS: Bilirubin,Urine NEG (Negative); Blood,Urine NEG (Negative); Color,Urine Yellow (Yellow); Protein,Urine <15 mg/dL mg/dL (Negative); WBC,Urine < 1.0 /HPF (0.0-6.0)
== END 2021-07-10 12:06 ==
LOC: ED 02:55
DX: R10.9 Unspecified abdominal pain (principal); Z53.21 Procedure and treatment not carried out due to patient leaving prior to being seen by health care provider
CPT/HCPCS: 36415; 80053; 81001; 82150; 83690; 85007; 85025